=== PATIENT | male | born 2000 | race African-American/Black ===

== ENCOUNTER 2018-05-15 20:11 | Emergency (ER) | payer SELFPAY ==
[~2018-05-15] VITALS: Ht 170.2 cm; Wt 81.6 kg
[2018-05-15] MEDS ORDERED: LIDOCAINE 1% INJ 20 ML 20 ML VIAL ONE (20:15)
--- NOTE | 2018-05-15 20:24 | ED Upper Extremity ---
General Stated Complaint: L HAND LITTLE FINGER INJ Source: patient Exam Limitations: no limitations History of Present Illness Date Seen by Provider: May 15, 2018 Time Seen by Provider: 20:22 Initial Comments Left 5th finger deformity after struck by basketball during basketball game tonight. Onset: just prior to arrival Severity: moderate Pain/Injury Location: left 5th finger Method of Injury: direct blow Modifying Factors: Worse With Movement Allergies and Home Medications Allergies Coded Allergies: No Known Drug Allergies (Unverified , 05/15/18) Patient Home Medication List Home Medication List Reviewed: Yes Review of Systems Constitutional: see HPI EENTM: see HPI Respiratory: no symptoms reported Cardiovascular: no symptoms reported Genitourinary: no symptoms reported Musculoskeletal: see HPI Skin: no symptoms reported Psychiatric/Neurological: No Symptoms Reported Past Jcgezeu-Vqrnpr-Herysj Hx Patient Social History Recent Foreign Travel: No Contact w/Someone Who Travel: No Physical Exam Vital Signs Vital Signs - First Documented 05/15/18 20:15 Temp 100.3 Pulse 95 Resp 18 B/P (MAP) 131/67 (88) Pulse Ox 98 O2 Delivery Room Air Capillary Refill : Height, Weight, BMI Height: '" Weight: lbs. oz. kg; BMI Method: General Appearance: WD/WN, no apparent distress Respiratory: no respiratory distress, no accessory muscle use Shoulder: normal inspection, non-tender Elbow/Forearm: normal inspection, non-tender, Left Wrist: Yes normal inspection, Yes non-tender Hand: Left, limited ROM (the distal aspect of the proximal phalanx left fifth finger is beneath the proximal aspect of the middle phalanx same finger. No open wounds to suggest an open dislocation. There is some ulnar deviation to this.) Neurologic/Psychiatric: alert, normal mood/affect, oriented x 3 Skin: normal color, warm/dry Progress/Results/Core Measures Results/Orders My Orders Orders - SHANNAN RAVI APRN Hand, Left, 3 Views (05/15/18 20:12) Lidocaine 1% Inj 20 Ml (Xylocaine 1% Inj (05/15/18 20:15) Lidocaine 2% Injection 20 Ml (Xylocaine (05/15/18 20:30) Departure Communication (Admissions) Joint reduction procedure note: A digital block was done using 4 mL of 1% lidocaine without epinephrine. Joint was then easily reduced. Impression Primary Impression: Dislocation, finger closed Qualified Codes: S63.259A - Unspecified dislocation of unspecified finger, initial encounter Disposition: 01 HOME, SELF-CARE Condition: Stable Departure-Patient Inst. Decision time for Depature: 20:23 Referrals: NO,LOCAL PHYSICIAN (PCP/Family) Primary Care Physician Patient Instructions: Finger Dislocation Add. Discharge Instructions: 1. Tylenol and Motrin for pain. Wear the splint for the next 1 week. Return to ER for any concerns. SHANNAN RAVI EKG/ECG TECHNICIAN May 15, 2018 20:24
[2018-05-15] MEDS ORDERED: LIDOCAINE 2% 20 ML (XYLOCAINE) VIAL INJ ONE (20:30)
--- NOTE | 2018-05-15 20:35 | Diagnostic Imaging Report ---
INDICATION: Injury to left fifth finger AP, oblique, and lateral views of the left hand are obtained. No fracture or acute bony abnormality is seen. Joint spaces are unremarkable. IMPRESSION: Negative left hand. Dictated by: Dictated on workstation # [id number]
[2018-05-15 20:39] VITALS: BP 111/69
--- OUTSIDE RECORDS SUMMARY | 2018-05-15 21:37 | XMS REPORT ---
Author Author ENID CLANCY Organization [facility] Address [address] [place] [address] Care Team Providers Care Ditch Worker Name Role Phone ENID CLANCY Unavailable PROBLEMS Unknown Problems ALLERGIES No Information ENCOUNTERS Encounter Location Date Diagnosis [facility] [address] [facility] [id number] [address] Apr, Encounter for immunization Z23 [facility] [address] [facility] [id number] [address] Apr, Encounter for immunization Z23 IMMUNIZATIONS Vaccine Route Administration Date Status MENINGOCOCCAL (MENVEO) IM Intramuscular Apr 20, 2017 Administered MMR SC Subcutaneous Apr 20, 2017 Administered SOCIAL HISTORY Never Assessed REASON FOR VISIT Immunization(s) PLAN OF CARE VITAL SIGNS MEDICATIONS Unknown Medications RESULTS No Results PROCEDURES Procedure Date Ordered Result Body Site MMR VACCINE, SC Apr 20, 2017 MENINGOCOCCAL (MENVEO) Apr 20, 2017 IMMUNIZATION ADMIN, EACH ADD (please include units) Apr 20, 2017 INSTRUCTIONS MEDICATIONS ADMINISTERED No Known Medications
--- OUTSIDE RECORDS SUMMARY | 2018-05-15 21:37 | XMS REPORT ---
Author Author ENID CLANCY Organization [facility] Address [address] [place] [address] Care Team Providers Care Systems Programmer Name Role Phone ENID CLANCY Unavailable PROBLEMS Unknown Problems ALLERGIES No Information ENCOUNTERS Encounter Location Date Diagnosis [facility] [address] [facility] [id number] [address] Apr, Encounter for immunization Z23 [facility] [address] [facility] [id number] [address] Apr, Encounter for immunization Z23 IMMUNIZATIONS Vaccine Route Administration Date Status BEXSERO (MEN B) IM Intramuscular Apr 18, 2017 Administered SOCIAL HISTORY Never Assessed REASON FOR VISIT Immunization(s) PLAN OF CARE VITAL SIGNS MEDICATIONS Unknown Medications RESULTS No Results PROCEDURES Procedure Date Ordered Result Body Site BEXSERO (MEN B) Apr 18, 2017 SINGLE IMMUNIZATION ADMIN Apr 18, 2017 INSTRUCTIONS MEDICATIONS ADMINISTERED No Known Medications
== END 2018-05-15 20:39 | disposition home or self-care (01) ==
LOC: ER 20:12
DX: S63.257A Unspecified dislocation of left little finger, initial encounter (principal); W21.05XA Struck by basketball, initial encounter; Y93.67 Activity, basketball
CPT/HCPCS: 29130; 73130

== ENCOUNTER 2022-02-15 12:20 | Emergency (ER) | payer MEDICAID ==
[~2022-02-15] VITALS: Ht 173 cm; Wt 78.0 kg
[2022-02-15 13:01] LABS: BILIRUBIN,URINE NEGATIVE (NEGATIVE); CLARITY,URINE CLEAR; COLOR,URINE YELLOW; GLUCOSE, URINE (UA) NEGATIVE (NEGATIVE); KETONES,URINE NEGATIVE (NEGATIVE); LEUKOCYTE ESTERASE ,URINE TRACE (NEGATIVE); NITRITE,URINE NEGATIVE (NEGATIVE); PH,URINE 7.5 (5-9); PROTEIN,URINE 1+ (NEGATIVE)
--- NOTE | 2022-02-15 13:23 | ED Abdominal Pain ---
General Chief Complaint: Abdominal/GI Problems Stated Complaint: NAUSEA/STOMACH CRAMPS/VOMITING/HEADACHE Nursing Triage Note: PT STATES NV STARTED YESTERDAY, STILL TODAY, LOOSE STOOLS, DENIES URINARY ISSUES. Source of Information: Patient Exam Limitations: No Limitations History of Present Illness Date Seen by Provider: Feb 15, 2022 Time Seen by Provider: 13:23 Allergies and Home Medications Allergies Coded Allergies: No Known Drug Allergies (Unverified , 05/15/18) Past Jglsqrt-Fxxrto-Ogsftz Hx Patient Social History Tobacco Use?: No Use of E-Cig and/or Vaping dev: Yes E-Cig or Vaping type used: Nicotine Substance use?: No Alcohol Use?: Yes Alcohol type: Hard Liquor Alcohol Frequency: Once in a while Immunizations Up To Date First/Initial COVID19 Vaccinat: 11/2021 COVID19 Vaccine Edi Programmer: J[employer]J Physical Exam Vital Signs Vital Signs - First Documented 02/15/22 12:40 Temp 36.8 Pulse 69 Resp 18 B/P (MAP) 132/92 (105) Pulse Ox 99 O2 Delivery Room Air Capillary Refill : Less Than 3 Seconds Height/Weight/BMI Height: 5'7.00" Weight: 180lbs. oz. 81.031846kp; 26.00 BMI Method:Stated Progress/Results/Core Measures Results/Orders Lab Results Laboratory Tests Test 02/15/22 12:50 02/15/22 13:10 02/15/22 14:05 Range/Units Urine Color YELLOW Urine Clarity CLEAR Urine pH 7.5 5-9 Urine Specific Trinity 1.025 H 1.016-1.022 Urine Protein 1+ H NEGATIVE Urine Glucose (UA) NEGATIVE NEGATIVE Urine Ketones NEGATIVE NEGATIVE Urine Nitrite NEGATIVE NEGATIVE Urine Bilirubin NEGATIVE NEGATIVE Urine Urobilinogen 1.0 < = 1.0 MG/DL Urine Leukocyte Esterase TRACE H NEGATIVE Urine RBC (Auto) NEGATIVE NEGATIVE Urine RBC NONE /HPF Urine WBC 0-2 /HPF Urine Squamous Epithelial Cells NONE /HPF Urine Crystals NONE /LPF Urine Bacteria NEGATIVE /HPF Urine Casts NONE /LPF Urine Mucus SMALL H /LPF Urine Culture Indicated NO White Blood Count 5.2 4.3-11.0 10^3/uL Red Blood Count 5.49 4.30-5.52 10^6/uL Hemoglobin 16.5 13.3-17.7 g/dL Hematocrit 48 40-54 % Mean Corpuscular Volume 87 80-99 fL Mean Corpuscular Hemoglobin 30 25-34 pg Mean Corpuscular Hemoglobin Concent 34 32-36 g/dL Red Cell Distribution Width 11.8 10.0-14.5 % Platelet Count 171 130-400 10^3/uL Mean Platelet Volume 10.0 9.0-12.2 fL Immature Granulocyte % (Auto) 0 % Neutrophils (%) (Auto) 64 42-75 % Lymphocytes (%) (Auto) 27 12-44 % Monocytes (%) (Auto) 6 0-12 % Eosinophils (%) (Auto) 3 0-10 % Basophils (%) (Auto) 1 0-10 % Neutrophils # (Auto) 3.3 1.8-7.8 10^3/uL Lymphocytes # (Auto) 1.4 1.0-4.0 10^3/uL Monocytes # (Auto) 0.3 0.0-1.0 10^3/uL Eosinophils # (Auto) 0.2 0.0-0.3 10^3/uL Basophils # (Auto) 0.0 0.0-0.1 10^3/uL Immature Granulocyte # (Auto) 0.0 0.0-0.1 10^3/uL Sodium Level 141 135-145 MMOL/L Potassium Level 4.2 3.6-5.0 MMOL/L Chloride Level 106 98-107 MMOL/L Carbon Dioxide Level 23 21-32 MMOL/L Anion Gap 12 5-14 MMOL/L Blood Urea Nitrogen 12 7-18 MG/DL Creatinine 1.01 0.60-1.30 MG/DL Estimat Glomerular Filtration Rate 107 BUN/Creatinine Ratio 12 Glucose Level 88 70-105 MG/DL Calcium Level 10.0 8.5-10.1 MG/DL Corrected Calcium 8.5-10.1 MG/DL Total Bilirubin 1.7 H 0.1-1.0 MG/DL Aspartate Amino Transf (AST/SGOT) 19 5-34 U/L Alanine Aminotransferase (ALT/SGPT) 16 0-55 U/L Alkaline Phosphatase 66 40-136 U/L C-Reactive Protein High Sensitivity 0.21 0.00-0.50 MG/DL Total Protein 8.2 6.4-8.2 GM/DL Albumin 5.0 H 3.2-4.5 GM/DL Lipase 10 8-78 U/L Influenza Type A (RT-PCR) Not Detected Not Detecte Influenza Type B (RT-PCR) Not Detected Not Detecte SARS-CoV-2 RNA (RT-PCR) Not Detected Not Detecte My Orders Orders - DONNELL LARSON BANQUET PREP COOK Ua Culture If Indicated (02/15/22 12:27) Cbc With Automated Diff (02/15/22 13:21) Comprehensive Metabolic Panel (02/15/22 13:21) Lipase (02/15/22 13:21) Hs C Reactive Protein (02/15/22 13:21) Ed Iv/Invasive Line Start (02/15/22 13:21) Ondansetron Injection (Zofran Injectio (02/15/22 13:30) Ns Iv 1000 Ml (Sodium Chloride 0.9%) (02/15/22 13:30) Covid 19 Inhouse Test (02/15/22 13:21) Influenza A And B By Pcr (02/15/22 13:21) Ct Abdomen/Pelvis W (02/15/22 14:03) Iohexol Injection (Omnipaque 350 Mg/Ml 1 (02/15/22 14:15) Received Contrast (Hold Metformin- Contr (02/15/22 14:15) Ns (Ivpb) (Sodium Chloride 0.9% Ivpb Bag (02/15/22 14:15) Medications Given in ED Current Medications Medications Dose Ordered Sig/Jaydon Route Start Time Stop Time Status Last Admin Dose Admin Iohexol 100 ml ONCE ONCE IV 02/15/22 14:15 02/15/22 14:16 DC 02/15/22 14:24 80 ML Ondansetron HCl 4 mg ONCE ONCE IVP 02/15/22 13:30 02/15/22 13:31 DC 02/15/22 13:36 4 MG Sodium Chloride 100 ml ONCE ONCE IV 02/15/22 14:15 02/15/22 14:16 DC 02/15/22 14:24 80 ML Sodium Chloride 1,000 ml @ 100 mls/hr Q10H ONCE IV 02/15/22 13:30 02/15/22 23:29 02/15/22 13:36 100 MLS/HR Vital Signs/I&O 02/15/22 12:40 Temp 36.8 Pulse 69 Resp 18 B/P (MAP) 132/92 (105) Pulse Ox 99 O2 Delivery Room Air Blood Pressure Mean: 105 Departure Impression Primary Impression: Gastroenteritis Additional Impression: Nausea and vomiting Disposition: 01 HOME, SELF-CARE Condition: Improved Departure-Patient Inst. Referrals: NO,LOCAL PHYSICIAN (PCP/Family) Primary Care Physician Patient Instructions: Nausea and Vomiting, Adult (DC) Add. Discharge Instructions: Plan: 1. Start with clear fluids and advance slowly as tolerated. 2. May take Zofran 4mg by mouth every 6 hours as needed for nausea/vomiting. 3. Return for any new, concerning, or worsening symptoms. All discharge instructions reviewed with patient and/or family. Voiced understanding. Scripts Ondansetron (Ondansetron Odt) 4 Mg Tab.rapdis 4 MG PO Q6H PRN for NAUSEA/VOMITING, #8 TAB 0 Refills Prov: DONNELL LARSON BANQUET PREP COOK 02/15/22 DONNELL LARSON BANQUET PREP COOK Feb 15, 2022 13:23
[2022-02-15 13:28] LABS: BASOPHILS % (AUTO) 1 % (0-10); EOSINOPHILS # (AUTO) 0.2 10^3/uL (0.0-0.3); EOSINOPHILS % (AUTO) 3 % (0-10); HEMATOCRIT 48 % (40-54); HEMOGLOBIN 16.5 g/dL (13.3-17.7); LYMPHOCYTES # (AUTO) 1.4 10^3/uL (1.0-4.0); LYMPHOCYTES % (AUTO) 27 % (12-44); MEAN CORPUSCULAR HEMOGLOBIN 30 pg (25-34); MEAN CORPUSCULAR HGB CONC 34 g/dL (32-36); MEAN CORPUSCULAR VOLUME 87 fL (80-99); MONOCYTES # (AUTO) 0.3 10^3/uL (0.0-1.0); MONOCYTES % (AUTO) 6 % (0-12); NEUTROPHILS # (AUTO) 3.3 10^3/uL (1.8-7.8); NEUTROPHILS % (AUTO) 64 % (42-75); PLATELET COUNT 171 10^3/uL (130-400); WHITE BLOOD COUNT 5.2 10^3/uL (4.3-11.0)
[2022-02-15 13:29] LABS: BACTERIA,URINE NEGATIVE /HPF; WBC,URINE 0-2 /HPF
[2022-02-15] MEDS ORDERED: NS IV 1000 ML 1,000 ML IV ONE (13:30)
[2022-02-15] MEDS ORDERED: ONDANSETRON 4 MG/2 ML (SDV) Z0FRAN IVP ONE (13:30)
[2022-02-15 13:38] LABS: CHLORIDE 106 MMOL/L (98-107); POTASSIUM 4.2 MMOL/L (3.6-5.0); SODIUM 141 MMOL/L (135-145)
[2022-02-15 13:40] LABS: GLUCOSE 88 MG/DL (70-105); TOTAL PROTEIN 8.2 GM/DL (6.4-8.2)
[2022-02-15 13:41] LABS: CARBON DIOXIDE 23 MMOL/L (21-32)
[2022-02-15 13:42] LABS: BILIRUBIN,TOTAL 1.7 MG/DL (0.1-1.0)
[2022-02-15 13:44] LABS: ALKALINE PHOSPHATASE 66 U/L (40-136); CREATININE SERUM 1.01 MG/DL (0.60-1.30); GFR ESTIMATED 107
[2022-02-15 13:45] LABS: BUN/CREATININE RATIO 12
[2022-02-15 13:47] LABS: ALANINE AMINOTRANSFERASE 16 U/L (0-55); LIPASE 10 U/L (8-78)
[2022-02-15] MEDS ORDERED: NS 100 ML (IVPB) BAG IV ONE (14:15)
[2022-02-15] MEDS ORDERED: IOHEXOL 350 MG/ML 100 ML (OMNIPAQUE 350) VIAL IV ONE (14:15)
[2022-02-15] MEDS ORDERED: HOLD METFORMIN - RECEIVED CONTRAST 20 ML VIAL IV SCH (14:15)
--- NOTE | 2022-02-15 14:53 | Diagnostic Imaging Report ---
PROCEDURE: CT abdomen and pelvis with contrast, 02/15/2022. TECHNIQUE: Multiple contiguous axial images were obtained through the abdomen and pelvis after administration of intravenous contrast. Auto Exposure Controls were utilized during the CT exam to meet ALARA standards for radiation dose reduction. All CT scans use one or more of the following dose optimizing techniques: automated exposure control, MA and/or KvP adjustment based on patient size and exam type or iterative reconstruction. INDICATION: Nausea, vomiting since yesterday. Loose stools and denies urinary issues. FINDINGS: The lung bases appear clear. The liver and spleen as well as gallbladder are unremarkable. Pancreas and adrenal glands normal. Kidneys unremarkable. Appendix is normal. There is no inflammatory change about the colon. Small bowel loops unremarkable. There is no ascites. No free air. There is no acute osseous abnormality. IMPRESSION: 1. Unremarkable abdomen and pelvis. Dictated by: Dictated on workstation # [id number]
[2022-02-15] MEDS ORDERED: ONDA4TAB11 PO (15:40)
[2022-02-15] MEDS ORDERED: RX-ONDANSETRON 4 MG ODT (ZOFRAN) PPK #4 PO STA (15:43)
[2022-02-15 15:50] VITALS: BP 136/92
== END 2022-02-15 15:50 | disposition home or self-care (01) ==
LOC: EDUNIT# 12:20 → ER 12:23
DX: K52.9 Noninfective gastroenteritis and colitis, unspecified (principal); Z20.822 Contact with and (suspected) exposure to COVID-19; Z28.311 Partially vaccinated for COVID-19
CPT/HCPCS: 36415; 74177; 80053; 81000; 83690; 85025; 86141; 87491; 87591; 87636